=== PATIENT | male | born 1990 | race Caucasian/White ===

== ENCOUNTER 2022-04-26 20:13 | Emergency (ER) | payer OTHER ==
[~2022-04-26] VITALS: Ht 177.8 cm; Wt 81.8 kg
[2022-04-26] MEDS ORDERED: ketorolac trometh. 30mg/ml inj. IM ONE (21:25)
[2022-04-26 21:39] VITALS: BP 119/79
== END 2022-04-26 21:42 | disposition home or self-care (01) ==
LOC: ER 20:13
DX: S83.91XA Sprain of unspecified site of right knee, initial encounter (principal); Z88.0 Allergy status to penicillin; X58.XXXA Exposure to other specified factors, initial encounter; Y93.89 Activity, other specified; Y92.89 Other specified places as the place of occurrence of the external cause; Y99.8 Other external cause status
CPT/HCPCS: 73564; 73610; 99284